=== PATIENT | male | born 1965 | race Caucasian/White ===

== ENCOUNTER 2016-12-05 12:45 | Emergency (ER) | payer MEDICARE, OTHER ==
[2016-12-05 12:52] VITALS: TEMP 97.9; BMI 32.3
--- NOTE | 2016-12-05 14:01 | PDOC ---
History of Present Illness - General History Source: Patient Exam Limitations: No Limitations - History of Present Illness Initial Comments: 12/05/16 15:34 The patient is a 51-year-old male accompanied by son with a significant past medical history of HTN, and presents to the emergency department with dizziness and nausea for 5 days. The patient reports that the dizziness is intermittent, but intense each time. He reports feeling weak, and is experiencing a headache localized to the posterior part of his head. He denies feeling like the room is spinning. He denies any head trauma or loss of consciousness. The patient denies chest pain and shortness of breath. The patient denies fever , chills, vomit, diarrhea and constipation. The patient denies dysuria, frequency, urgency and hematuria. Allergies: NKDA Social History: Former smoker Doctor: Dr. Rae <Alyssa Colon - Last Filed: 12/05/16 17:57> <Castro Durán - Last Filed: 12/05/16 18:08> - General Chief Complaint: Lightheaded Stated Complaint: DIZZINESS Time Seen by Provider: 12/05/16 14:01 Past History <Alyssa Colon - Last Filed: 12/05/16 17:57> - Past Medical History HTN: Yes Kidney Stones: Yes - Psycho/Social/Smoking Cessation Hx Anxiety: No Suicidal Ideation: No Smoking History: Former smoker Have you smoked in the past 12 months: No If you are a former smoker, when did you quit?: 10 Information on smoking cessation initiated: No Hx Alcohol Use: Yes (2 glasses of wine daily) Drug/Substance Use Hx: No Substance Use Type: None <Castro Durán - Last Filed: 12/05/16 18:08> - Past Medical History Allergies/Adverse Reactions: Allergies Allergy/AdvReac Type Severity Reaction Status Date / Time No Known Allergies Allergy Verified 12/05/16 12:52 Home Medications: Ambulatory Orders Hydrochlorothiazide [Hctz -] 12.5 mg PO DAILY 12/05/16 Hydrochlorothiazide [Hctz -] 50 mg PO DAILY #30 tablet 12/05/16 Review of Systems - Review of Systems Able to Perform ROS?: Yes Comments:: 12/05/16 15:35 GENERAL/CONSTITUTIONAL: No fever or chills. HEAD, EYES, EARS, NOSE AND THROAT: No change in vision. No ear pain or discharge. No sore throat. CARDIOVASCULAR: No chest pain or shortness of breath. RESPIRATORY: No cough, wheezing, or hemoptysis. GASTROINTESTINAL: (+) Nausea. No vomiting, diarrhea or constipation. GENITOURINARY: No dysuria, frequency, or change in urination. MUSCULOSKELETAL: No joint or muscle swelling or pain. No neck or back pain. SKIN: No rash NEUROLOGIC: (+) Headache. (+) Dizziness. No vertigo, loss of consciousness, or change in strength/sensation. ENDOCRINE: No increased thirst. No abnormal weight change. HEMATOLOGIC/LYMPHATIC: No anemia, easy bleeding, or history of blood clots. ALLERGIC/IMMUNOLOGIC: No hives or skin allergy. <Alyssa Colon - Last Filed: 12/05/16 17:57> *Physical Exam - Vital Signs Last Vital Signs Temp Pulse Resp BP Pulse Ox 97.9 F 93 H 18 147/98 99 12/05/16 12:48 12/05/16 12:48 12/05/16 12:48 12/05/16 12:48 12/05/16 12:48 - Physical Exam Comments: 12/05/16 15:35 GENERAL: Awake, alert, and fully oriented, in no acute distress HEAD: No signs of trauma EYES: PERRLA, EOMI, sclera anicteric, conjunctiva clear ENT: Auricles normal inspection, hearing grossly normal, nares patent, oropharynx clear without exudates. Moist mucosa NECK: Normal ROM, supple, no lymphadenopathy, JVD, or masses LUNGS: Breath sounds equal, clear to auscultation bilaterally. No wheezes, and no crackles HEART: Regular rate and rhythm, normal S1 and S2, no murmurs, rubs or gallops ABDOMEN: Soft, nontender, normoactive bowel sounds. No guarding, no rebound. No masses EXTREMITIES: Normal range of motion, no edema. No clubbing or cyanosis. No cords, erythema, or tenderness NEUROLOGICAL: Cranial nerves II through XII grossly intact. Normal speech, normal gait SKIN: Warm, Dry, normal turgor, no rashes or lesions noted. <Alyssa Colon - Last Filed: 12/05/16 17:57> - Vital Signs Last Vital Signs Temp Pulse Resp BP Pulse Ox 97.9 F 93 H 18 147/98 99 12/05/16 12:48 12/05/16 12:48 12/05/16 12:48 12/05/16 12:48 12/05/16 12:48 <Castro Durán - Last Filed: 12/05/16 18:08> Heart Score/ECG Review - ECG Impressions Comment:: 12/05/16 15:42 Normal sinus rhythm Minimal voltage criteria for LVH, may be normal variant Borderline ECG <Alyssa Colon - Last Filed: 12/05/16 17:57> ED Treatment Course - LABORATORY CBC & Chemistry Diagram: 12/05/16 14:30 12/05/16 14:30 - ADDITIONAL ORDERS Additional order review: Laboratory Results 12/05/16 12/05/16 14:30 14:30 INR 1.30 H Sodium 137 Potassium 3.9 Chloride 102 Carbon Dioxide 30 Anion Gap 5 L BUN 11 Creatinine 1.1 Creat Clearance w eGFR > 60 Random Glucose 100 Calcium 8.9 Magnesium 2.1 Total Bilirubin 0.8 AST 26 ALT 39 Alkaline Phosphatase 56 Creatine Kinase 95 Troponin I < 0.02 Total Protein 7.0 Albumin 4.0 12/05/16 14:30 RBC 5.47 MCV 85.9 MCHC 33.8 RDW 13.6 MPV 8.2 Neutrophils % 59.8 Lymphocytes % 30.0 Monocytes % 8.3 Eosinophils % 0.9 Basophils % 1.0 - RADIOLOGY Radiograph Interpretation: 12/05/16 17:57 CHEST PA & LAT Reviewed by: Dr. Castro Durán Interpreted by: Dr. Don Barahona IMPRESSION: No evidence of active pulmonary disease HEAD CT W/O CONTRAST Reviewed by: Dr. Castro Durán Interpreted by: Dr. Pascual Arroyo IMPRESSION: Negative exam. No discrete noncontrast CT abnormality is identified. The partially imaged paranasal sinuses demonstrate no opacification. <Alyssa Colon - Last Filed: 12/05/16 17:57> - LABORATORY CBC & Chemistry Diagram: 12/05/16 14:30 12/05/16 14:30 <Castro Durán - Last Filed: 12/05/16 18:08> *DC/Admit/Observation/Transfer - Attestations Scribe Attestion: 12/05/16 15:36 Documentation prepared by Alyssa Colon, acting as medical parasitologist for Castro Durán MD. <Alyssa Colon - Last Filed: 12/05/16 17:57> - Discharge Dispostion Admit: No - Attestations Physician Attestion: 12/05/16 14:01 I, Dr. Castro Durán, attest that this document has been prepared under my direction and personally reviewed by me in its entirety. I further attest, that it accurately reflects all work, treatment, procedures and medical decision -making performed by me. <Castro Durán - Last Filed: 12/05/16 18:08> Diagnosis at time of Disposition: Uncontrolled hypertension - Discharge Dispostion Disposition: HOME Condition at time of disposition: Good - Prescriptions Prescriptions: Hydrochlorothiazide [Hctz -] 50 mg PO DAILY #30 tablet - Patient Instructions Printed Discharge Instructions: DI for High Blood Pressure Additional Instructions: Keith. Your blood pressure is too high. Take two of the HCTZ (50mg total) eevery day. See your doctor thursday, return to us if worse or problems. Best- Dr. Castro Durán
[2016-12-05 14:40] LABS: EOSINOPHIL 0.9 % (0-4.5); MCHC 33.8 g/dl (32.0-35.9); MEAN CELL VOLUME 85.9 fl (80-96); MEAN PLT VOLUME 8.2 fl (7.5-11.1); NEUTROPHILS 59.8 % (42.8-82.8); PLATELET COUNT 163 K/MM3 (134-434); RDW 13.6 % (11.9-15.9); WHITE BLOOD COUNT 6.9 K/mm3 (4.0-10.0)
[2016-12-05 14:53] LABS: INR 1.3 (0.82-1.09); PROTHROMBIN TIME (PATIENT) 14.4 SEC (9.98-11.88)
[2016-12-05 15:02] LABS: ANION GAP 5 (8-16); CALCIUM 8.9 mg/dL (8.5-10.1); CO2 30 mmol/L (21-32); GLUCOSE,RANDOM 100 mg/dL (74-106); MAGNESIUM 2.1 mg/dL (1.8-2.4)
[2016-12-05 15:10] LABS: ALK PHOS 56 U/L (45-117); BILIRUBIN,TOTAL 0.8 mg/dL (0.2-1.0); CREATININE 1.1 mg/dL (0.7-1.3); SGOT/AST 26 U/L (15-37); SGPT/ALT 39 U/L (12-78); TROPONIN I < 0.02 ng/ml (0.00-0.05)
[2016-12-05] MEDS ORDERED: MECLIZINE HCL 25 MG TABLET (FP) PO ONE (16:47)
[2016-12-05] MEDS ORDERED: cloNIDine HCL 0.1 MG TABLET PO ONE (16:47)
[2016-12-05] MEDS ORDERED: cloNIDine HCL 0.1 MG TABLET ONE (17:21)
[2016-12-05] MEDS ORDERED: MECLIZINE HCL 25 MG TABLET (FP) ONE (17:21)
[2016-12-05 18:12] VITALS: BP 132/98; PULSE 68
--- NOTE | 2016-12-07 11:18 | EKG ---
Test Reason : Blood Pressure : / mmHG Vent. Rate : 074 BPM Atrial Rate : 074 BPM P-R Int : 174 ms QRS Dur : 088 ms QT Int : 384 ms P-R-T Axes : 035 004 018 degrees QTc Int : 426 ms NORMAL SINUS RHYTHM MINIMAL VOLTAGE CRITERIA FOR LVH, MAY BE NORMAL VARIANT BORDERLINE ECG NO PREVIOUS ECGS AVAILABLE Confirmed by RICO CALVIN MD ([id number]) on 12/07/2016 11:17:55 AM Referred By: Confirmed By:RICO CALVIN MD
== END 2016-12-05 18:14 | disposition home or self-care (01) ==
LOC: JER 12:45
DX: I10 Essential (primary) hypertension (principal)
CPT/HCPCS: 36415; 70450-TC; 71020-TC; 80053; 82550; 83735; 84484; 85025; 85610; 93005; 93010; 99283-25

== ENCOUNTER 2018-12-26 20:35 | Emergency (ER) | payer MEDICARE, OTHER ==
[2018-12-26 20:38] VITALS: BP 117/77; PULSE 103; TEMP 97.5; BMI 33.9
--- NOTE | 2018-12-26 20:51 | PDOC ---
History of Present Illness - General Chief Complaint: Ear Problem Stated Complaint: EARACHE Time Seen by Provider: 12/26/18 20:50 Past History - Travel Traveled outside of the country in the last 30 days: No Close contact w/someone who was outside of country & ill: No - Past Medical History Allergies/Adverse Reactions: Allergies Allergy/AdvReac Type Severity Reaction Status Date / Time No Known Allergies Allergy Verified 12/26/18 20:38 COPD: No HTN: Yes Kidney Stones: Yes - Suicide/Smoking/Psychosocial Hx Smoking History: Never smoked Have you smoked in the past 12 months: No If you are a former smoker, when did you quit?: 10 Hx Alcohol Use: Yes (2 glasses of wine daily) Drug/Substance Use Hx: No Substance Use Type: None Review of Systems - Review of Systems Able to Perform ROS?: Yes Comments:: 12/26/18 21:06 CONSTITUTIONAL: Absent: fever, chills, diaphoresis, generalized weakness, malaise, loss of appetite HEENT: Present: Tinnitis to the R ear Absent: rhinorrhea, nasal congestion, throat pain , throat swelling, difficulty swallowing, mouth swelling, ear pain, eye pain, visual Changes CARDIOVASCULAR: Absent: chest pain, loss of consciousness, palpitations, irregular heart rate, peripheral edema RESPIRATORY: Absent: cough, shortness of breath, dyspnea with exertion, orthopnea, wheezing, stridor, hemoptysis GASTROINTESTINAL: Absent: abdominal pain, abdominal distension, nausea, vomiting, diarrhea, constipation, melena, hematochezia GENITOURINARY: Absent: dysuria, frequency, urgency, hesitancy, hematuria, flank pain, genital pain MUSCULOSKELETAL: Absent: myalgia, arthralgia, joint swelling SKIN: Absent: rash, itching, pallor HEMATOLOGIC/IMMUNOLOGIC: Absent: easy bleeding, easy bruising, lymphadenopathy, frequent infections ENDOCRINE: Absent: unexplained weight gain, unexplained weight loss, heat intolerance, cold intolerance NEUROLOGIC: Absent: headache, focal weakness or paresthesias, dizziness, unsteady gait, seizure, mental status changes, bladder or bowel incontinence PSYCHIATRIC: Absent: anxiety, depression, suicidal or homicidal ideation, hallucinations. Is the patient limited Romansh proficient: No *Physical Exam - Vital Signs Last Vital Signs Temp Pulse Resp BP Pulse Ox 97.5 F L 103 H 18 117/77 98 12/26/18 20:36 12/26/18 20:36 12/26/18 20:36 12/26/18 20:36 12/26/18 20:36 - Physical Exam Comments: 12/26/18 21:07 GENERAL: Well developed, well nourished. Awake and alert. No acute distress. HEENT: Normocephalic, atraumatic. PERRLA, EOMI. No conjunctival pallor. Sclera are non- icteric. Moist mucous membranes. Oropharynx is clear. NECK: Supple. Full ROM. No JVD. Carotid pulses 2+ and symmetric, without bruits. No thyromegaly. No lymphadenopathy. CARDIOVASCULAR: Regular rate and rhythm. No murmurs, rubs, or gallops. Distal pulses are 2+ and symmetric. SKIN: Warm and dry. Normal capillary refill. No rashes. No jaundice. NEUROLOGICAL: Alert, awake, appropriate. Cranial nerves 2-12 intact. No deficits to light touch and temperature in face, upper extremities and lower extremities. No motor deficits in the in face, upper extremities and lower extremities. Normoreflexic in the upper and lower extremities. Normal speech. Toes are down- going bilaterally. Gait is normal without ataxia. PSYCHIATRIC: Cooperative. Good eye contact. Appropriate mood and affect. Medical Decision Making - Medical Decision Making 12/26/18 21:07 The patient is a 53-year-old male with past medical history of hypertension, who presents to the emergency department today for ringing in his right ear. Patient states that it started 4 days ago. He describes it as like a dog whistle and that the patient is low and consistent. Denies ear pain, fevers, chills, eardrum damage, exposure to loud noises, dizziness, headache and lightheadedness. A/P: Tinnitus of the right ear. On exam the right ear canal is clear. The right TM is without infection. No JVD or bruits on auscultation. Unlikely a vascular etiology for his tinnitus. We'll refer to ENT for further workup Discharge home with supportive therapy I discussed the physical exam findings, ancillary test results and final diagnoses with the patient. I answered all of the patient's questions. The patient was satisfied with the care received and felt comfortable with the discharge plan and treatment plan. The Patient agrees to follow up with the primary care physician/specialist within 24-72 hours. Return precautions were given. *DC/Admit/Observation/Transfer Diagnosis at time of Disposition: Tinnitus of right ear - Discharge Dispostion Disposition: HOME Condition at time of disposition: Stable Decision to Admit order: No - Referrals Referrals: Piotr Adams MD [Staff Physician] - - Patient Instructions Printed Discharge Instructions: DI for Tinnitus Additional Instructions: You were evaluated for ringing in your ears today There is nothing to do at this time Use the TV to help you fall asleep Follow up with ENT. A referral has been provided to you Return to the ED For dizziness, lightheadedness, nausea, ear pain, or if you have any changes in your symptoms Usted fue evaluado para sonar en myranda odos hoy No hay nada que hacer en mane momento. Usa el televisor para ayudarte a dormir Seguimiento con ENT. Se le garsia proporcionado ngoc referencia Regrese a la carly de emergencias por mareos, aturdimiento, nuseas, dolor de odo o si tiene algn cambio en myranda sntomas. Print Language: MOHAWK - Post Discharge Activity
== END 2018-12-26 21:18 | disposition home or self-care (01) ==
LOC: JERFT 20:35
DX: H93.11 Tinnitus, right ear (principal); I10 Essential (primary) hypertension
CPT/HCPCS: 99282-25

== ENCOUNTER 2022-04-26 10:17 | Emergency (ER) | payer OTHER ==
[2022-04-26 10:34] VITALS: TEMP 98.7; BMI 35.9
[2022-04-26 12:22] LABS: BASO % 0.9 % (0-2.0); HEMOGLOBIN 15.2 GM/dL (11.7-16.9); LYMPH % 26.8 % (8-40); MCHC 34.6 g/dl (32.0-35.9); MEAN CELL VOLUME 86.8 fl (80-96); MEAN PLT VOLUME 8.5 fl (7.5-11.1); MONO % 7.6 % (3.8-10.2); NEUT % 63.7 % (42.8-82.8); PLATELET COUNT 155 10^3/uL (134-434); RBC 5.07 M/mm3 (4.00-5.60); RDW 13.4 % (11.9-15.9)
[2022-04-26 12:29] LABS: INR 1.18 (0.83-1.09); PROTHROMBIN TIME (PATIENT) 13.6 SEC (9.7-13.0)
[2022-04-26 12:31] LABS: ACTIVATED PTT 31.2 SECONDS (25.2-36.5)
[2022-04-26 12:43] LABS: CALCIUM 8.9 mg/dL (8.5-10.1)
[2022-04-26 12:44] LABS: ALBUMIN 3.8 g/dl (3.4-5.0); BLOOD UREA NITROGEN 8.7 mg/dL (7-18)
[2022-04-26 12:48] LABS: TOT PROT 7.1 g/dl (6.4-8.2)
[2022-04-26 12:49] LABS: BILIRUBIN,TOTAL 0.6 mg/dL (0.2-1)
[2022-04-26 15:15] VITALS: BP 127/74; PULSE 82; RESP 20
== END 2022-04-26 15:15 | disposition home or self-care (01) ==
LOC: JER 10:17
DX: R07.9 Chest pain, unspecified (principal)
CPT/HCPCS: 36415; 71046-TC-FY; 80053; 84132; 84484; 85025; 85610; 85730; 93005; 93010; 99285-25

== ENCOUNTER 2023-07-13 17:49 | Emergency (ER) | payer MEDICARE, OTHER ==
[2023-07-13 18:09] VITALS: BP 126/82; PULSE 72; RESP 18; TEMP 98.5; BMI 33.4
[2023-07-13 20:58] LABS: BASO % 0.5 % (0-2.0); EOS % 0.8 % (0-4.5); HEMATOCRIT 46.3 % (35.4-49); HEMOGLOBIN 15.9 GM/dL (11.7-16.9); MCH 30.2 pg (25.7-33.7); MCHC 34.4 g/dl (32.0-35.9); MEAN CELL VOLUME 87.6 fl (80-96); MEAN PLT VOLUME 8.4 fl (7.5-11.1); MONO % 7.8 % (3.8-10.2); NEUT % 60.9 % (42.8-82.8); PLATELET COUNT 164 10^3/uL (134-434); RBC 5.28 M/mm3 (4.00-5.60); RDW 13.5 % (11.9-15.9); WHITE BLOOD COUNT 6.9 K/mm3 (4.0-10.0)
[2023-07-13 21:22] LABS: POTASSIUM 4.1 mmol/L (3.5-5.1)
[2023-07-13 21:24] LABS: CALCIUM 8.4 mg/dL (8.5-10.1)
[2023-07-13 21:25] LABS: BLOOD UREA NITROGEN 8.1 mg/dL (7-18); MAGNESIUM 2.3 mg/dL (1.8-2.4)
[2023-07-13 21:28] LABS: CREATININE 0.9 mg/dL (0.55-1.3)
[2023-07-13 21:30] LABS: BILIRUBIN,TOTAL 0.7 mg/dL (0.2-1); TOT PROT 7.4 g/dl (6.4-8.2)
[2023-07-13 21:33] LABS: N-TERMINAL BNP 12.9 pg/ml (5-125)
== END 2023-07-13 23:25 | disposition home or self-care (01) ==
LOC: JER 17:49
DX: R06.02 Shortness of breath (principal); R51.9 Headache, unspecified; R42 Dizziness and giddiness; R68.83 Chills (without fever); R61 Generalized hyperhidrosis; Z20.822 Contact with and (suspected) exposure to COVID-19
CPT/HCPCS: 0241U-QW; 36415; 71046-TC-FY; 80053; 83735; 83880; 84484; 85025; 93005; 93010; 99285-25